=== PATIENT | male | born 1950 | race Caucasian/White ===

== ENCOUNTER 2023-01-10 17:54 | Outpatient (RCR) | payer OTHER, SELFPAY | END 2023-02-04 23:59 | disposition home or self-care (01) | LOC: MM 17:54 | PROVIDERS: PCP Internal Medicine; Visit Provider Internal Medicine | DX: Z51.81 Encounter for therapeutic drug level monitoring (principal); Z79.01 Long term (current) use of anticoagulants; I48.91 Unspecified atrial fibrillation | CPT/HCPCS: 85610; G0463 ==

== ENCOUNTER 2023-02-09 10:50 | Outpatient (RCR) | payer OTHER, SELFPAY | END 2023-03-07 16:45 | disposition home or self-care (01) | LOC: MM 10:50 | PROVIDERS: PCP Internal Medicine; Visit Provider Internal Medicine | DX: Z51.81 Encounter for therapeutic drug level monitoring (principal); Z79.01 Long term (current) use of anticoagulants; I48.91 Unspecified atrial fibrillation | CPT/HCPCS: 85610; G0463 ==

== ENCOUNTER 2023-03-08 08:57 | Outpatient (RCR) | payer OTHER, SELFPAY | END 2023-04-07 15:47 | disposition home or self-care (01) | LOC: MM 08:57 | PROVIDERS: Visit Provider Internal Medicine | DX: Z51.81 Encounter for therapeutic drug level monitoring (principal); Z79.01 Long term (current) use of anticoagulants; I48.91 Unspecified atrial fibrillation | CPT/HCPCS: 85610; G0463 ==

== ENCOUNTER 2023-04-08 08:01 | Outpatient (RCR) | payer OTHER, SELFPAY | END 2023-05-06 16:32 | disposition home or self-care (01) | LOC: MM 08:01 | PROVIDERS: Visit Provider Internal Medicine | DX: Z51.81 Encounter for therapeutic drug level monitoring (principal); Z79.01 Long term (current) use of anticoagulants; I48.91 Unspecified atrial fibrillation ==

== ENCOUNTER 2023-04-12 09:39 | Outpatient (OUT) | payer OTHER, SELFPAY ==
[2023-04-12 10:51] LABS: Anion Gap 11.6; BUN Creatinine Ratio 17.1; Calcium 8.4 mg/dL (8.5-10.1); Carbon Dioxide 29.8 mmol/L (21.0-32.0); Chloride 103 mmol/L (98-107); Estimated GFR (African America 53 (>=60); Estimated GFR (Non-African Ame 44 (>=60); Glucose 216 mg/dL (74-106); Potassium 4.4 mmol/L (3.5-5.1); Sodium 140 mmol/L (136-145)
== END 2023-04-12 09:40 | disposition home or self-care (01) ==
LOC: LAB 09:41
PROVIDERS: Visit Provider Internal Medicine Cardiovascular Disease
DX: I48.19 Other persistent atrial fibrillation (principal); R06.09 Other forms of dyspnea
CPT/HCPCS: 36415; 80048; 83880

== ENCOUNTER 2023-05-09 02:24 | Outpatient (RCR) | payer OTHER, SELFPAY | END 2023-06-07 17:34 | disposition home or self-care (01) | LOC: MM 02:24 | PROVIDERS: Visit Provider Internal Medicine | DX: Z51.81 Encounter for therapeutic drug level monitoring (principal); Z79.01 Long term (current) use of anticoagulants; I48.91 Unspecified atrial fibrillation ==

== ENCOUNTER 2023-06-08 00:38 | Outpatient (RCR) | payer OTHER, SELFPAY | END 2023-07-07 16:45 | disposition home or self-care (01) | LOC: MM 00:38 | PROVIDERS: Visit Provider Internal Medicine | DX: Z51.81 Encounter for therapeutic drug level monitoring (principal); Z79.01 Long term (current) use of anticoagulants; I48.91 Unspecified atrial fibrillation ==

== ENCOUNTER 2023-06-27 13:59 | Outpatient (OUT) | payer OTHER, SELFPAY ==
--- NOTE | 2023-06-27 14:52 | CA_ITS ---
Patient Name Site Name NOEMI JAMESON [facility] Account No Medical Record Number Age Sex Date Time [id number] [facility]:[id number] M 06/27/2023 14:15 At the Request Of NIA LEROY ECHOCARDIOGRAM REPORT PROCEDURE: CA ECHO DOPPLER COMPLETE INDICATIONS: Paroxysmal atrial fibrillation, Cardiomyopathy, ABN EKG COMPARISON: None. DESCRIPTION: COMPLETE ECHOCARDIOGRAM Real-time transthoracic echocardiography with 2D, M-mode, spectral and color flow Doppler performed. QUALITY: Technical quality was good. LEFT VENTRICLE: Normal chamber size. Moderate concentric left ventricular hypertrophy. Systolic function is at the lower limits of normal. Abnormal septal motion likely due to pacemaker. LV EF: Lower limits of normal left ventricular ejection fraction, (50-55%). DIASTOLIC: Not adequately assessed due to heart rhythm. ATRIAL SEPTUM: LEFT ATRIUM: Mild dilatation. RIGHT ATRIUM: Mild dilatation. Pacer wire present. RIGHT VENTRICLE: Mild dilatation. Normal right ventricular systolic function. Pacer wire present. TRICUSPID VALVE: Normal mobility and thickness. No stenosis with mild regurgitation. No evidence of pulmonary hypertension. RVSP 29 mmHg MITRAL VALVE: Normal leaflet thickness and mobility. No evidence of mitral valve stenosis. Mild mitral annular calcification. Trivial mitral regurgitation. AORTIC VALVE: Normal trileaflet appearance. No visible sclerosis. Normal leaflet mobility. No evidence of aortic valve stenosis. No aortic regurgitation. AORTIC ROOT: Normal diameter and appearance. PULMONIC VALVE: Normal thickness and mobility. No stenosis. No regurgitation. PERICARDIUM: No evidence of pericardial effusion. IVC: Collapses with inspirations. Normal size. PLEURA: CONCLUSION: 1. Moderate concentric left ventricular hypertrophy with low normal systolic function. LVEF is 50 to 55%. 2. Mildly dilated right ventricle with normal systolic function. 3. Mild biatrial dilatation. 4. No significant valvular dysfunction. 5. Normal right-sided pressures. 6. No pericardial effusion. Adult Echocardiography Procedure Report Left Ventricle LVEDD (3.7 - 5.6 cm): 5.55 cm LVESD (2.2 - 4.0 cm): 4.30 cm LVIVS thickness (0.6 - 1.2 cm): 1.51 cm LVPW thickness (0.5 - 1.0 cm): 1.53 cm e': 0.13 m/s E - e': 7.90 LVOT Max Gradient: 1.21 mm[Hg] LVOT Area (cm2): 0.55 m/s Peak Velocity (LVOT): 0.55 m/s Mean Velocity (LVOT): 0.39 m/s LVOT Diameter 2.52 cm Left Ventricular Ejection Fraction: 50-55 % Left Atrium LA Volume Index (2D A2C): 40.23 ml/m2 Left Atrium Systolic Dimension: 4.36 cm Mitral Valve Mitral Valve E-Wave Peak Velocity: 0.99 m/s Right Ventricle RV Internal Diastolic Dimension: 3.88 cm Aorta AO Root Diam: 3.91 cm Ascending Ao Diam: 3.29 cm Aortic Valve AoV Area (Peak Viet): 3.26 cm2, 3.26 cm2 AoV Area (VTI): 3.59 cm2, 3.59 cm2 Peak Velocity(Antegrade Flow): 0.84 m/s Peak Gradient(Antegrade Flow): 2.82 mm[Hg] Mean Velocity(Antegrade Flow): 0.55 m/s Mean Gradient(Antegrade Flow): 1.36 mm[Hg] Velocity Time Integral: 17.80 cm Tricuspid Valve Peak Velocity (Regurgitant Flow): 2.27 m/s, 2.25 m/s, 2.54 m/s Pulmonic Valve Mean Gradient: 1.69 mm[Hg], 1.76 mm[Hg], 1.51 mm[Hg] Mean Velocity: 0.62 m/s, 0.62 m/s, 0.57 m/s Peak Velocity: 0.90 m/s Peak Gradient: 2.81 mm[Hg], 3.87 mm[Hg], 3.09 mm[Hg] Right Atrium Right Atrium Systolic Pressure: 74.85 ml, 74.85 ml Dictated by: Ernesto Cantu M.D. on 06/29/2023 at 18:57 Approved by: Ernesto Cantu M.D. on 06/29/2023 at 19:05
== END 2023-06-27 14:00 | disposition home or self-care (01) ==
LOC: CARD 14:00
PROVIDERS: Visit Provider Nurse Practitioner
DX: I48.0 Paroxysmal atrial fibrillation (principal); I42.9 Cardiomyopathy, unspecified; R94.31 Abnormal electrocardiogram [ECG] [EKG]
CPT/HCPCS: 93306; 93356

== ENCOUNTER 2023-07-08 08:56 | Outpatient (RCR) | payer OTHER, SELFPAY | END 2023-08-05 15:42 | disposition home or self-care (01) | LOC: MM 08:56 | PROVIDERS: Visit Provider Internal Medicine | DX: Z51.81 Encounter for therapeutic drug level monitoring (principal); Z79.01 Long term (current) use of anticoagulants; I48.91 Unspecified atrial fibrillation ==

== ENCOUNTER 2023-08-08 00:34 | Outpatient (RCR) | payer OTHER, SELFPAY | END 2023-09-07 15:43 | disposition home or self-care (01) | LOC: MM 00:34 | PROVIDERS: Visit Provider Internal Medicine | DX: Z51.81 Encounter for therapeutic drug level monitoring (principal); Z79.01 Long term (current) use of anticoagulants; I48.91 Unspecified atrial fibrillation ==

== ENCOUNTER 2023-09-08 00:42 | Outpatient (RCR) | payer OTHER, SELFPAY | END 2023-10-06 17:07 | disposition home or self-care (01) | LOC: MM 00:42 | PROVIDERS: Visit Provider Internal Medicine | DX: Z51.81 Encounter for therapeutic drug level monitoring (principal); Z79.01 Long term (current) use of anticoagulants; I48.91 Unspecified atrial fibrillation ==

== ENCOUNTER 2023-10-07 01:02 | Outpatient (RCR) | payer OTHER, SELFPAY | END 2023-11-04 12:59 | disposition home or self-care (01) | LOC: MM 01:02 | PROVIDERS: Visit Provider Internal Medicine | DX: Z51.81 Encounter for therapeutic drug level monitoring (principal); Z79.01 Long term (current) use of anticoagulants; I48.91 Unspecified atrial fibrillation ==

== ENCOUNTER 2023-11-07 03:11 | Outpatient (RCR) | payer OTHER, SELFPAY | END 2023-12-06 17:43 | disposition home or self-care (01) | LOC: MM 03:11 | PROVIDERS: Visit Provider Internal Medicine | DX: Z51.81 Encounter for therapeutic drug level monitoring (principal); Z79.01 Long term (current) use of anticoagulants; I48.91 Unspecified atrial fibrillation ==

== ENCOUNTER 2023-12-07 04:32 | Outpatient (RCR) | payer OTHER, SELFPAY | END 2024-01-06 11:40 | disposition home or self-care (01) | LOC: MM 04:32 | PROVIDERS: Visit Provider Internal Medicine | DX: Z51.81 Encounter for therapeutic drug level monitoring (principal); Z79.01 Long term (current) use of anticoagulants; I48.91 Unspecified atrial fibrillation ==

== ENCOUNTER 2024-01-09 00:11 | Outpatient (RCR) | payer OTHER, SELFPAY | END 2024-02-03 10:12 | disposition home or self-care (01) | LOC: MM 00:11 | PROVIDERS: Visit Provider Internal Medicine | DX: Z51.81 Encounter for therapeutic drug level monitoring (principal); Z79.01 Long term (current) use of anticoagulants; I48.91 Unspecified atrial fibrillation ==

== ENCOUNTER 2024-02-06 00:30 | Outpatient (RCR) | payer OTHER, SELFPAY | END 2024-03-07 23:59 | disposition home or self-care (01) | LOC: MM 00:30 | PROVIDERS: Visit Provider Internal Medicine | DX: Z51.81 Encounter for therapeutic drug level monitoring (principal); Z79.01 Long term (current) use of anticoagulants; I48.91 Unspecified atrial fibrillation ==